=== PATIENT | male | born 1955 | race Caucasian/White ===

== ENCOUNTER 2023-10-31 05:57 | Day surgery (SDC) | payer MEDICARE, OTHER, SELFPAY ==
[2023-10-31] VITALS (15 sets, daily range): BP systolic 100–139; BP diastolic 63–75; BMI 33.7
[2023-10-31 08:59] LABS: ACT-LR - POC 319 Seconds (116-155)
--- NOTE | 2023-10-31 09:55 | ITS.CL.ABL ---
Patient Access - Ablation
Ablation
Procedure Report:
ELECTROPHYSIOLOGY ABLATION STUDY
�
DATE:: October 31, 2023�����������������������������REFERRING: Dr. Gino Winters
�
INDICATION: Paroxysmal supraventricular tachycardia in the form of atrial fibrillation.��History of cardiomyopathy and recurrence on amiodarone therapy
�
HISTORY: See H and P.� As above
�
ANTIARRHYTHMIC DRUG: Amiodarone
�
PRE-PROCEDURE JOSEFA no thrombus
�
PRESENTING RHYTHM: Sinus rhythm
�
'TIME-OUT':��called and confirmed.
�
SEDATION/ANESTHESIA:��provided via the anesthesia department using general anesthesia (LMA).
�
INTRAVENOUS/ARTERIAL ACCESS:
Right femoral venous - 8Fr
Left femoral venous - 8 Fr, 6 Fr
Ultrasound guidance for bilateral femoral vein access was utilized by me to obtain access with demonstration of normal anatomy
CHADS-VASC Score:
�
HAS-Bled Score
�
PROCEDURE:
1.��A decapolar CS catheter was placed within the CS for mapping and pacing.��This was also used as the reference catheter for the 3-D map.
�
2. The intracardiac ultrasound catheter was positioned in the RA to identify the FO for targeting of transseptal puncture, assist��in identification of the pulmonary vein ostia, monitoring pre and post ablation pulmonary vein flow velocities,
monitoring for 'bubble' formation during RF application as a sign of thermal injury,��and to monitor for pericardial effusion during mapping and ablation procedure.���Left atrial size, LV ejection fraction, and pulmonary vein flows were monitored
pre and post ablation procedure. The other valves were inspected and found to be free of significant regurgitation or stenosis.
�
3.��Half of the calculated heparin bolus was administered prior to the first transeptal puncture.��Transseptal puncture was performed to diagnose RA and LA pressure so that safety of LA mapping and ablation could be further assessed, and to access
the left atrium and pulmonary veins for mapping and ablation.��This entailed advancing an 8 Fr SL-1 sheath with dilator into the superior vena cava and withdrawing both (monitoring intracardiac ultrasound, fluoroscopy and tip pressure) with the tip
oriented toward the atrial septum.��The fossa ovalis was engaged (indicated by sudden displacement of the sheath tip as well as tenting of the fossa seen on intracardiac ultrasound).��Left atrial access required a pass with the [place]brough needle
extended.��Left atrial catheter position was confirmed by pressure monitoring (RA mean pressure 8 mm Hg and LA mean pressure 14 mm Hg), LA saturation ( 99 %),��as well as fluoroscopy.��The sheath was advanced over the dilator and positioned in the
left atrium.��This procedure was repeated for the Agilis sheath.��The remainder of the calculated heparin bolus was administered and heparin was
infused to maintain ACT at 300 -350 seconds throughout the case.
�
4.��RA pacing was performed via the proximal decapolar poles and LA pacing was performed via the distal decapolar poles.
�
5. A quadrapolar catheter was first positioned at the His position for His Bundle recording which was tagged via the 3-D Navex sytem, and then passed to the RVA for RV pacing and recording.
�
6. The multipolar catheter and pulse select LIPV, LSPV, RSPV and the RIPV.��
�
7.��Next, a 3-D map was created using Navex.���A 3-D reconstructed CT image was compared to the 3-D Navex map to assist in anatomic interpretation, mapping and ablation.��The CT image and the NavX image were fused.
�
8. PVI with entrance block and posterior wall isolation as above.
�82 lesions given total.
9. Normal sinus and AV node function noted
�
TOTAL FLOURO TIME: 12.7 minutes 123 mGy
�
TOTAL RF DURATION: 0 minutes
�
REVERSAL OF HEPARIN: 40 mg of protamine, slow IV administration
�
COMPLICATIONS:
None
Intracardiac US shows no pericardial effusion post ablation.
�
SUMMARY:��
Complex left atrial mapping and ablation.
Isolation of all 4 pulmonary veins as above
�
RECOMMENDATIONS:
1. Admit to monitored bed
2. Resume anticoagulation
3.��Discontinue amiodarone
4.��Out of bed 4 hours
�
Copy to: Dr. Gino Winters
�
[2023-10-31 12:01] LABS: ACT-LR - POC > 397 Seconds (116-155)
--- NOTE | 2023-10-31 13:33 | W.PN.UPDATE ---
Update Note
Progress Note Update
68 yo male s/p PCI (same day). He feels good, no cp, sob, usha diet, b/l groins c/d/i, soft, scant drainage from right groin, mildly tender with palpation, EKG SR. He will continue Eliquis, stop Amiodarone and continue metoprolol. Activity
restrictions reviewed. He will f/u Dr. Winters in 2 mo. He is for d/c home after 2pm if groin stable and able to void.
SUMMARY:��
Complex left atrial mapping and ablation.
Isolation of all 4 pulmonary veins as above
�
RECOMMENDATIONS:
1. Admit to monitored bed
2. Resume anticoagulation
3.��Discontinue amiodarone
4.��Out of bed 4 hours
�
Copy to: Dr. Gino Winters
[2023-10-31] MEDS: BUMEX 1 MG PO (14:23)
== END 2023-10-31 16:35 | disposition home or self-care (01) ==
LOC: CATH 05:57
PROVIDERS: ATTENDING PHYSICIAN Internal Medicine Cardiovascular Disease; OTHER PHYSICIAN Internal Medicine Cardiovascular Disease
DX: I48.91 Unspecified atrial fibrillation (principal); I50.9 Heart failure, unspecified; I42.9 Cardiomyopathy, unspecified; I50.20 Unspecified systolic (congestive) heart failure; L40.9 Psoriasis, unspecified; E66.9 Obesity, unspecified; Z68.32 Body mass index [BMI] 32.0-32.9, adult; Z87.891 Personal history of nicotine dependence; J44.9 Chronic obstructive pulmonary disease, unspecified; Z79.84 Long term (current) use of oral hypoglycemic drugs; Z79.899 Other long term (current) drug therapy; Z79.01 Long term (current) use of anticoagulants
CPT/HCPCS: C1732; C1894; C1730; C1733; C1769; C1892; C1759; 76937; 85347; 86900; 86901; 93005; 93656